=== PATIENT | male | born 1950 | race Caucasian/White ===

== ENCOUNTER 2017-07-23 01:36 | Emergency (ER) | payer BC, SELFPAY ==
[2017-07-23 02:04] LABS: #Lymphocytes 0.7 thou/uL (1.20-3.40); #Monocytes 0.6 thou/uL (0.11-0.59); #Neutrophils 8.5 thou/uL (1.40-6.50); %Basophils 0.2 % (0.0-1.0); %Eosinophils 0.2 % (0.0-10.0); %Monocytes 5.8 % (0.0-10.0); %Neutrophils 86.7 % (42.0-75.0); Hemoglobin 14.8 g/dL (14.0-18.0); Mean Corpuscular HGB CONC 34.1 g/dL (32.0-36.0); Mean Corpuscular Hemoglobin 33.4 pg (27.0-31.0); Mean Corpuscular Volume 98.1 fl (80.0-94.0); Platelet Count 158 thou/uL (130-400); RBC Distribution Width 11.6 % (11.5-14.5); Red Blood Cell (RBC) Count 4.42 mill/uL (4.70-6.10); White Blood Cell (WBC) Count 9.8 thou/uL (4.8-10.8)
[2017-07-23 02:27] LABS: ALT (SGPT) 14 U/L (8-55); AST (SGOT) 16 U/L (5-34); Albumin 4.4 g/dL (3.4-4.8); Alkaline Phosphatase 100 U/L (40-150); Anion Gap 15 mmol/L (10-20); BUN (Urea Nitrogen) 19 mg/dL (8.4-25.7); Bilirubin, Total 1.3 mg/dL (0.2-1.2); Calc. Creatinine Clearance 0 mL/min (70-130); Calcium 9.4 mg/dL (7.8-10.44); Carbon Dioxide 27 mmol/L (23-31); Chloride 103 mmol/L (98-107); Estimated GFR-MDRD 58; Globulin 2.5 g/dL (2.4-3.5); Glucose 201 mg/dL (80-115); Lipase 9 U/L (8-78); Potassium 3.7 mmol/L (3.5-5.1); Protein, Total 6.9 g/dL (5.8-8.1); Sodium 141 mmol/L (136-145)
[2017-07-23 02:47] LABS: Bilirubin Negative (Negative); Blood, Urine Small (Negative); Clarity TURBID (Clear); Glucose, Urine (Dipstick) Negative (Negative); Leukocyte Trace (Negative); Nitrite Negative (Negative); Protein, Urine (Dipstick) Trace mg/dL (Neg-Trace); Specific Gravity, Urine 1.012 (1.002-1.036); Urobilinogen 0.2 mg/dL (0.2-1.0); pH, Urine 7.5 (5.0-9.0)
[2017-07-23 02:49] LABS: Bacteria/HPF 3+ HPF (None Seen); Hyaline Casts/LPF 4-6 HYALINE CAST LPF (0-3 Hyaline); Pathc Cast-AUWi Flag 0.67 (0-2.49); RBC/HPF 0-3 HPF (0-3); Squamous Epithelial None Seen HPF (0-3); WBC/HPF 21-50 HPF (0-3)
[2017-07-23] MEDS ORDERED: Ondansetron HCl/PF 4 MG/2 ML Vial ONE (03:11)
[2017-07-23] MEDS ORDERED: Ketorolac Tromethamine 30 MG/ML VIAL ONE (03:59)
[2017-07-23] MEDS ORDERED: Acetaminophen 500 MG TAB ONE (04:09)
--- NOTE | 2017-07-23 08:03 | CT ---
PRELIMINARY REPORT/[facility]/EMERGENCY AFTER HOURS PROCEDURE: EXAM: CT Angiography Chest With Intravenous Contrast CLINICAL HISTORY: 67 years old, male; Pain and signs and symptoms; Other: SOB; Abdominal pain; Localized; Right lower q uadrant (rlq); Dyspnea and shortness of breath; Prior surgery TECHNIQUE: Axial computed tomographic angiography images of the chest with intravenous contrast using pulmonary embolism protocol. Coronal reformatted images were created and reviewed. COMPARISON: No relevant prior studies available. FINDINGS: Pulmonary arteries: Prominent pulmonary arteries, the main pulmonary artery measuring 3.6 cm. Some left base motion artifact. No pulmonary embolus identified. Aorta: No thoracic aortic aneurysm. Lungs: Mild bibasilar subsegmental atelectasis. No mass or consolidation. Pleural space: No significant effusion. No pneumothorax. Heart: Coronary calcifications and apparent LAD stent. Aortic valvular calcifications. No significant pericardial effusion. Bones/joints: No acute fracture. No dislocation. Soft tissues: Unremarkable. Lymph nodes: Calcified right hilar lymph nodes. IMPRESSION: No acute findings. Thank you for allowing us to participate in the care of your patient. Dictated and Authenticated by: Good Martin MD 07/23/2017 3:34 AM Central Time ([place] & [place]) FINAL REPORT EMERGENCY AFTER HOURS CT ANGIOGRAM THORAX WITH IV CONTRAST AND 3D RECONSTRUCTIONS: Date: 07/23/17 HISTORY: Low oxygen saturations. Right lower quadrant abdominal pain for 3-4 hours. Nausea and diarrhea. Histo ry of urinary bladder cancer. IMPRESSION: 1. No CT evidence of a pulmonary embolus. 2. Prominence of the pulmonary arteries, which can be seen with pulmonary artery hypertension. 3. Bibasilar atelectasis. 4. Calcified subcarinal and right hilar lymph nodes related to prior granulomatous disease. 5. Perinephric stranding on the right partially imaged. 6. Coronary artery calcifications. Findings are in agreement with the preliminary report by Julita. POS: DAWSON
--- NOTE | 2017-07-23 08:04 | CT ---
PRELIMINARY REPORT/[facility]/EMERGENCY AFTER HOURS PROCEDURE: EXAM: CT Abdomen and Pelvis With Intravenous Contrast CLINICAL HISTORY: 67 years old, male; Pain and signs and symptoms; Other: SOB; Abdominal pain; Localized; Right lower q uadrant (rlq); Dyspnea and shortness of breath; Prior surgery TECHNIQUE: Axial computed tomography images of the abdomen and pelvis with intravenous contrast. Coronal reformatted images were created and reviewed. COMPARISON: No relevant prior studies available. FINDINGS: Lower thorax: No acute findings. ABDOMEN: Liver: Unremarkable. Gallbladder and bile ducts: Unremarkable. Pancreas: Normal. Spleen: Normal. Adrenals: Normal. Kidneys and ureters: Ileal conduit. 2-3 mm nonobstructive stone in the lower pole of the left kidney. 4 mm stone in the distal right ureter several centimeters proximal to the conduit with mild hydroneph rosis, slightly delayed nephrogram, and mild/moderate perinephric stranding. Stomach and bowel: Unremarkable. No obstruction. Appendix: No findings to suggest acute appendicitis. PELVIS: Bladder: Unremarkable. Reproductive: Cystoprostatectomy. ABDOMEN and PELVIS: Intraperitoneal space: No free air. No significant fluid collection. Bones/joints: Unremarkable. No acute fracture. Soft tissues: Small fat containing periumbilical eventration or small hernia with minimal protruding nonobstructed bowel. Vasculature: Unremarkable. Lymph nodes: Unremarkable. No enlarged lymph nodes. IMPRESSION: Distal right ureteral stone resulting in mild hydronephrosis and perinephric stranding. Thank you for allowing us to participate in the care of your patient. Dictated and Authenticated by: Good Martin MD 07/23/2017 3:34 AM Central Time ([place] & [place]) FINAL REPORT EMERGENCY AFTER HOURS CT ABDOMEN AND PELVIS WITH IV CONTRAST: Date: 07/23/17 HISTORY: Right lower quadrant abdominal pain. Dyspnea and shortness of breath. COMPARISON: None available. IMPRESSION: 1. Partially obstructing, approximately 4.0 mm calculus in the distal right ureter several centimete rs proximal to the ileal conduit with resultant mild right hydronephrosis. There is perinephric stran ding seen on the right. This is likely related to the obstruction, but associated pyelonephritis teresa ot be excluded, although there are no parenchymal changes of the right kidney. 2. No left renal or ureteral calculus present. Ileal conduit is present in the right lower quadrant. Loop of bowel does extend through ostomy defect. 3. Postsurgical changes related to cystectomy. 4. Suggestion of small periumbilical hernia with loops of bowel extending into the region of the def ect. 5. Atherosclerotic vascular calcifications. 6. Colonic diverticulosis. 7. No enlarged lymph nodes are seen by CT size criteria, but there are several nonspecific small aor tocaval lymph nodes identified. Findings are in agreement with the preliminary report by Julita. POS: WANG
[2017-07-23] MEDS ORDERED: ISOVUE-370 76%-LOCM 1 ML ONE (16:51)
== END 2017-07-23 04:24 | disposition home or self-care (01) ==
LOC: ERS 01:36
DX: N13.2 Hydronephrosis with renal and ureteral calculous obstruction (principal); N39.0 Urinary tract infection, site not specified; I10 Essential (primary) hypertension; I25.10 Atherosclerotic heart disease of native coronary artery without angina pectoris; Z85.51 Personal history of malignant neoplasm of bladder; Z79.82 Long term (current) use of aspirin; Z79.899 Other long term (current) drug therapy
CPT/HCPCS: 71275; 74177; 80053; 81003; 81015; 83690; 85025; 87086; 96361; 96374; 96375; J0696; J1885; J2405